=== PATIENT | female | born 1990 | race Caucasian/White ===

== ENCOUNTER → 2024-11-18 14:02 | Outpatient (REF) | payer BC, SELFPAY ==
[2024-11-18 17:15] LABS: ALT (SGPT) 76 U/L (0-35); AST (SGOT) 55 U/L (14-36); Albumin 5.1 g/dl (3.5-5.0); Alkaline Phosphatase 67 U/L (38-126); Blood Urea Nitrogen 9 mg/dl (7-17); Calcium 9.7 mg/dl (8.4-10.2); Carbon Dioxide 30 mmol/L (22-30); Chloride 100 mmol/L (98-107); Glucose 98 mg/dl (70-99); HDL Cholesterol 75 mg/dl; Iron 59 ug/dl (37-170); LDL Cholesterol, Calculated 49 mg/dl; Potassium 4.9 mmol/L (3.5-5.1); Sodium 139 mmol/L (135-145); Total Bilirubin 0.9 mg/dl (0.2-1.3); Total Cholesterol 160 mg/dl (50-199); Total Protein 7.5 g/dl (6.3-8.2); Triglyceride 182 mg/dl (10-149); Very Low Density Lipoprotein 36 mg/dl (0-30); eGFR > 60.00
[2024-11-18 17:24] LABS: Percent Saturation 11 % (20-50); Total Iron Binding Capacity 498 ug/dl (265-497)
[2024-11-18 17:32] LABS: Hematocrit 43.9 % (37.0-47.0); Hemoglobin 13.5 g/dL (12.0-16.0); Mean Corp Hgb Conc. 30.8 g/dL (33.0-37.0); Mean Corpuscular Hgb 26.8 pg (27.0-31.0); Mean Corpuscular Volume 87.3 fL (81.0-99.0); Nucleated Red Blood Cells % 0 %; Platelet Count 162 10^3/uL (130-400); Red Blood Cell Count 5.03 10^6/uL (4.20-5.40); Red Cell Dist. Width 14.9 % (11.5-14.5); White Blood Cell Count 5.9 10^3/uL (4.8-10.8)
[2024-11-18 17:45] LABS: TSH 0.05 uIU/ml (0.47-4.68)
[2024-11-18 17:49] LABS: Ferritin 7.4 ng/ml (6.24-137)
[2024-11-19 07:36] LABS: Glycohemoglobin (HgbA1c) 5.2 % (4.0-5.6)
== END ==
LOC: CLAB 14:02
PROVIDERS: ATTENDING PHYSICIAN Family Medicine
DX: Z00.00 Encounter for general adult medical examination without abnormal findings (principal); E66.3 Overweight; D50.8 Other iron deficiency anemias; Z98.84 Bariatric surgery status
CPT/HCPCS: 36415; 80053; 80061; 82728; 83036; 83540; 83550; 84443; 85025

== ENCOUNTER → 2024-12-09 16:31 | Outpatient (REF) | payer BC, SELFPAY ==
[2024-12-09 17:34] LABS: ALT (SGPT) 51 U/L (0-35); AST (SGOT) 33 U/L (14-36); Albumin 4.3 g/dl (3.5-5.0); Alkaline Phosphatase 61 U/L (38-126); Direct Bilirubin 0.3 mg/dl (0.0-0.4); GGTP 43 U/L (12-43); Total Bilirubin 1.2 mg/dl (0.2-1.3); Total Protein 6.8 g/dl (6.3-8.2)
[2024-12-11 17:08] LABS: Thyroglobulin Antibodies <1.5 IU/mL (0.0-4.0); Thyroid Peroxidase Ab (TPO) 1.4 IU/mL (0.0-9.0)
[2024-12-12 01:55] LABS: TSH Receptor Antibody <1.10 IU/L (<=1.75)
== END ==
LOC: CLAB 16:31
PROVIDERS: ATTENDING PHYSICIAN Family Medicine
DX: Z98.84 Bariatric surgery status (principal); D50.8 Other iron deficiency anemias; K91.89 Other postprocedural complications and disorders of digestive system; E78.1 Pure hyperglyceridemia; R79.89 Other specified abnormal findings of blood chemistry; R74.8 Abnormal levels of other serum enzymes; E66.3 Overweight
CPT/HCPCS: 36415; 80076; 82977; 83520; 84443; 86376; 86800

== ENCOUNTER → 2025-09-21 11:59 | Outpatient (REF) | payer BC, SELFPAY | LOC: CLAB 11:59 | PROVIDERS: ATTENDING PHYSICIAN Family Medicine | DX: T81.89XA Other complications of procedures, not elsewhere classified, initial encounter (principal) | CPT/HCPCS: 87075 ==